=== PATIENT | female | born 1995 | race Caucasian/White ===

== ENCOUNTER 2018-11-24 14:16 | Emergency (ER) | payer MEDICAID ==
[~2018-11-24] VITALS: Ht 162.6 cm; Wt 75.7 kg
[2018-11-24 14:28] VITALS: BP 101/59
--- NOTE | 2018-11-24 14:34 | NUR ---
PT TO [facility] IN STABLE CONDITION
--- NOTE | 2018-11-24 15:13 | NUR ---
PT TO CHAIR E, AMBULATED TO CHAIR WITH STEADY GAIT
--- NOTE | 2018-11-24 15:14 | NUR ---
CAME IN WITH C/O RIGHT EAR PAIN X 2 WEEKS. POSSIBLY FROM ALLERGIC REACTION TO JEWELRY. -REDNESS, -SWELLING NOTED AT THIS TIME. PT DENIES DISCHARGE, FEVER/CHILLS. DENIES PMH
[2018-11-24 16:08] VITALS: BP 108/66
--- NOTE | 2018-11-24 16:08 | NUR ---
Patient discharged with v/s stable. Written and verbal after care instructions given and explained. Patient verbalized understanding. Ambulatory with steady gait. All questions addressed prior to discharge. Advised to follow up with PMD.
== END 2018-11-24 16:08 | disposition home or self-care (01) ==
LOC: MED 14:16
DX: H92.01 Otalgia, right ear (principal)
CPT/HCPCS: 99281

== ENCOUNTER 2018-12-06 17:06 | Emergency (ER) | payer MEDICAID ==
[~2018-12-06] VITALS: Ht 162.6 cm; Wt 73.9 kg
[2018-12-06 17:13] VITALS: BP 119/71
--- NOTE | 2018-12-06 19:34 | NUR ---
PT WAS CALLED FROM THE LOBBY, NO RESPONSE, LWBS
--- NOTE | 2018-12-06 19:45 | NUR ---
PT WAS CALLED FOR THE SECOND TIME IN LOBBY, NO RESPONSE, LWBS
--- NOTE | 2018-12-06 19:45 | NUR ---
PATIENT LEFT WITHOUT BEING SEEN BY DR. MUÑOZ. NO FURTHER CARE PROVIDED FOR PATIENT.
== END 2018-12-06 19:45 | disposition left against medical advice (07) ==
LOC: MED 17:06
DX: H92.01 Otalgia, right ear (principal); R09.89 Other specified symptoms and signs involving the circulatory and respiratory systems; Z53.21 Procedure and treatment not carried out due to patient leaving prior to being seen by health care provider

== ENCOUNTER 2019-01-21 17:23 | Emergency (ER) | payer MEDICAID ==
[~2019-01-21] VITALS: Ht 162.6 cm; Wt 73.5 kg
[2019-01-21 17:28] VITALS: BP 104/66
--- NOTE | 2019-01-21 17:35 | NUR ---
PT AMB TO BED 4
--- NOTE | 2019-01-21 17:48 | NUR ---
STREP SWABS DONE AND LAB CALLED FOR PICK-UP
--- NOTE | 2019-01-21 17:50 | NUR ---
C/O SORE THROAT SINCE YESTERDAY AND HAS COUGH, NAUSEA, AND VOMITING TWO TIMES TODAY. PT ALSO MENTIONS SHE HAS LEFT LOWER ABDOMINAL PAIN, CRAMPING, 5/10 SINCE YESTERDAY. PT IS NOT ABLE TO TALK, DRINK, OR EAT DUE TO THE SEVERE SORE THORAT. DENIES DIARRHEA; SKIN IS PINK/WARM/DRY; AAOX4 WITH EVEN AND STEADY GAIT; LUNGS CLEAR BL; HR EVEN AND REGULAR; PT DENIES ANY FEVER, CP, SOB AT THIS TIME; PATIENT STATES PAIN OF 10/10 AT THIS TIME; VSS; PATIENT POSITIONED FOR COMFORT; HOB ELEVATED; BEDRAILS UP X1; BED DOWN. ER MD MADE AWARE OF PT STATUS.
--- NOTE | 2019-01-21 19:30 | NUR ---
RECEIVED REPORT FROM AM NURSE. PT LAYING IN BED, RR EVEN AND UNLABORED. VSS, REPORTS 02/17 SORE THROAT. ALL NEEDS MET AT THIS TIME.
[2019-01-21 20:16] VITALS: BP 103/68
== END 2019-01-21 20:16 | disposition home or self-care (01) ==
LOC: MED 17:23
DX: J02.8 Acute pharyngitis due to other specified organisms (principal); B97.89 Other viral agents as the cause of diseases classified elsewhere
CPT/HCPCS: 87081; 99283